=== PATIENT | male | born 1985 | race African-American/Black ===

== ENCOUNTER 2021-09-06 11:26 | Emergency (ER) | payer OTHER ==
[2021-09-06 11:51] VITALS: BP 147/87; PULSE 87; TEMP 98.1; BMI 32.5
[2021-09-06] MEDS ORDERED: KETOROLAC TROMETHAMINE 60 MG/2 ML VIAL IM ONE (12:30)
[2021-09-06] MEDS ORDERED: KETOROLAC TROMETHAMINE 60 MG/2 ML VIAL ONE (12:32)
== END 2021-09-06 12:39 | disposition home or self-care (01) ==
LOC: JERFT 11:26 → JER 11:26 → JERFT 12:39
PROC: 3E023GC Introduction of Other Therapeutic Substance into Muscle, Percutaneous Approach (ICD-10-PCS; principal; 2021-09-06)
DX: S39.012A Strain of muscle, fascia and tendon of lower back, initial encounter (principal); S89.92XA Unspecified injury of left lower leg, initial encounter; V49.40XA Driver injured in collision with unspecified motor vehicles in traffic accident, initial encounter
CPT/HCPCS: 99284-25